=== PATIENT | female | born 2000 | race African-American/Black ===

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

== ENCOUNTER 2023-12-26 17:10 | Emergency (ER) | payer OTHER, SELFPAY ==
[2023-12-26 17:11] VITALS: BP 122/77; PULSE 86; RESP 16; TEMP 36.6; O2SAT 100; BMI 33.6
--- NOTE | 2023-12-26 18:34 | ED.RN ---
pt reports she would like to come back tomorrow and not wait today.
== END 2023-12-26 18:30 | disposition left against medical advice (07) ==
LOC: ED 18:36
DX: G47.00 Insomnia, unspecified (principal)